=== PATIENT | male | born 1990 | race Caucasian/White ===

== ENCOUNTER 2019-09-01 08:43 | Outpatient (CLI) | payer OTHER ==
[2019-09-02 13:05] LABS: HEPATITIS B SURFACE ANTIGEN NON-REACTIVE (NON-REACTIVE)
[2019-09-02 14:31] LABS: HEPATITIS C ANTIBODY NON-REACTIVE (NON-REACTIVE); HIV AG/AB 4TH GEN NON-REACTIVE (NON-REACTIVE)
== END 2019-09-01 23:59 | disposition home or self-care (01) ==
LOC: LAB.N 08:43
PROVIDERS: ATTEND Internal Medicine
DX: Z20.2 Contact with and (suspected) exposure to infections with a predominantly sexual mode of transmission (principal); A56.01 Chlamydial cystitis and urethritis
CPT/HCPCS: 36415; 81599; 86592; 86803; 87340; 87389

== ENCOUNTER 2022-01-11 13:09 | Outpatient (CLI) | payer OTHER ==
--- NOTE | 2022-01-11 14:49 | XRAY Report ---
PROCEDURE: Chest 2 View X-Ray INDICATIONS: Acute cough TECHNIQUE: 2 view(s) of the chest. COMPARISON: None. FINDINGS: Surgical changes and devices: None. Lungs and pleura: No pleural effusions or pneumothorax. Lungs are clear. Mediastinum: Mediastinal contours are normal. Heart size is normal. Bones and chest wall: No suspicious bony abnormalities. Soft tissues appear unremarkable. IMPRESSION: No acute cardiopulmonary process demonstrated radiographically. Reviewed by: Jignesh Barrett MD on 01/11/2022 2:48 PM PDT Approved by: Jignesh Barrett MD on 01/11/2022 2:48 PM PDT Station ID: [id number]
== END 2022-01-11 23:59 | disposition home or self-care (01) ==
LOC: DI.N 13:09
PROVIDERS: ATTEND Registered Nurse
DX: R05.1 Acute cough (principal)